=== PATIENT | male | born 1995 | race Caucasian/White ===

== ENCOUNTER 2021-08-18 11:16 | Emergency (ER) | payer SELFPAY ==
[2021-08-18 11:31] VITALS: BP 113/65; PULSE 68; TEMP 98.3; BMI 22.8
== END 2021-08-18 14:25 | disposition home or self-care (01) ==
LOC: JER 11:16
DX: S86.912A Strain of unspecified muscle(s) and tendon(s) at lower leg level, left leg, initial encounter (principal); X50.0XXA Overexertion from strenuous movement or load, initial encounter
CPT/HCPCS: 93971-TC; 99284-25

== ENCOUNTER 2022-07-21 13:19 | Emergency (ER) | payer OTHER ==
[2022-07-21 13:28] VITALS: BP 127/82; PULSE 51; RESP 18; TEMP 97.4; BMI 24.3
[2022-07-21] MEDS ORDERED: METHOCARBAMOL 500 MG TABLET PO ONE (14:42)
[2022-07-21] MEDS ORDERED: KETOROLAC TROMETHAMINE 30 MG/1 ML VIAL IM ONE (14:42)
[2022-07-21] MEDS ORDERED: LIDOCAINE 5% TOPICAL PATCH TP ONE (14:42)
[2022-07-21] MEDS ORDERED: LIDOCAINE 5% TOPICAL PATCH ONE (15:22)
[2022-07-21] MEDS ORDERED: METHOCARBAMOL 500 MG TABLET ONE (15:22)
[2022-07-21] MEDS ORDERED: KETOROLAC TROMETHAMINE 30 MG/1 ML VIAL ONE (15:23)
== END 2022-07-21 17:46 | disposition home or self-care (01) ==
LOC: JER 13:19
PROC: 3E0233Z Introduction of Anti-inflammatory into Muscle, Percutaneous Approach (ICD-10-PCS; principal; 2022-07-21)
DX: M54.50 Low back pain, unspecified (principal)
CPT/HCPCS: 72128-TC; 72131-TC; 99284-25